=== PATIENT | male | born 1985 | race Hispanic/Latino ===

== ENCOUNTER 2022-12-28 19:41 | Emergency (ER) | payer SELFPAY ==
[~2022-12-28] VITALS: Ht 167.6 cm; Wt 68.0 kg
[2022-12-28] VITALS (8 sets, daily range): BP systolic 110–182; BP diastolic 77–114
[2022-12-28 20:26] LABS: BASO% 0.2 % (0-3); EOS% 0.5 % (0-8); HEMATOCRIT 36.7 % (39.0-50.0); IMMATURE GRANULOCYTES 0.2 % (0.0-5.0); MEAN CELL VOLUME 84.8 fL CALC (80.0-100.0); MEAN CORPUSCULAR HGB CONC 35.4 g/dL CAL (32.0-36.0); MONO% 7.5 % (2-13); NEUT# 11.97 thou/uL (1.82-7.42); NEUT% 68.6 % (42-76); RED BLOOD COUNT 4.33 mill/uL (4.70-6.10); RED CELL DISTRI WIDTH 11.7 % (11.5-15.5)
[2022-12-28 20:29] LABS: URINE BILIRUBIN - DIPSTICK NEGATIVE (NEGATIVE); URINE BLOOD DIPSTICK SMALL (NEGATIVE); URINE COLOR YELLOW; URINE GLUCOSE - DIPSTICK >=1000 mg/dL (NEGATIVE); URINE KETONE NEGATIVE (NEGATIVE); URINE LEUK ESTERASE NEGATIVE (NEGATIVE); URINE PH 6.5 (4.5-8.0); URINE PROTEIN - DIPSTICK NEGATIVE (NEG-TRACE); URINE UROBILINOGEN - DIPSTICK 0.2 E.U./dL (0.2)
[2022-12-28 20:32] LABS: URINE NITRITE - DIPSTICK NEGATIVE (Negative)
[2022-12-28 20:34] LABS: ALBUMIN 4.6 g/dL (3.2-5.0); ALKALINE PHOSPHATASE 170 u/l (38-126); ANION GAP 12 (6-22 (CALC)); BILIRUBIN, TOTAL 1.4 mg/dL (0.2-1.3); BUN 11 mg/dL (9-20); BUN/CREATININE RATIO 15 (12-20 (CALC)); CARBON DIOXIDE 29 mmol/l (22-30); CHLORIDE 94 mmol/l (95-108); CREATININE 0.7 mg/dL (0.7-1.3); ETHYL ALCOHOL 0 mg/dl (0-30); GFR FOR AFR.AMER. > 60 ML/MIN (>=60 (CALC)); GFR OTHER RACES > 60 ML/MIN (>=60 (CALC)); POTASSIUM 4.2 mmol/l (3.5-5.1); SGOT/AST 44 u/l (17-59); SODIUM 131 mmol/l (137-146)
[2022-12-28 20:37] LABS: URINE WBC 0-2 WBC/hpf (0-5)
== END 2022-12-28 22:30 | disposition designated cancer center or children's hospital (05) | DRG 897 ==
LOC: ED 19:41
PROVIDERS: Family Medicine
DX: F15.150 Other stimulant abuse with stimulant-induced psychotic disorder with delusions (principal); E11.9 Type 2 diabetes mellitus without complications; T38.3X6A Underdosing of insulin and oral hypoglycemic [antidiabetic] drugs, initial encounter; Z91.128 Patient's intentional underdosing of medication regimen for other reason; Z20.822 Contact with and (suspected) exposure to COVID-19
CPT/HCPCS: J2060

== ENCOUNTER → 2022-12-28 | Emergency (ER) | payer SELFPAY | END | disposition home or self-care (01) | DRG 951 | LOC: ED 11:37 → LWOBS 11:42 | DX: Z53.21 Procedure and treatment not carried out due to patient leaving prior to being seen by health care provider (principal) ==

== ENCOUNTER 2023-06-24 12:03 | Emergency (ER) | payer SELFPAY ==
[~2023-06-24] VITALS: Ht 167.6 cm; Wt 65.8 kg
[2023-06-24 12:14] VITALS: BP 139/89
[2023-06-24 12:41] LABS: BASO% 0.3 % (0-3); EOS% 0.6 % (0-8); HEMATOCRIT 36.7 % (39.0-50.0); HEMOGLOBIN 12.6 g/dl (14.0-18.0); IMMATURE GRANULOCYTES 0.5 % (0.0-5.0); LYMPH% 21.8 % (15-41); MEAN CELL VOLUME 85.2 fL CALC (80.0-100.0); MEAN CORPUSCULAR HGB 29.2 pG CALC (26.0-32.0); MEAN CORPUSCULAR HGB CONC 34.3 g/dL CAL (32.0-36.0); MONO% 10.7 % (2-13); NEUT# 5.87 thou/uL (1.82-7.42); NEUT% 66.1 % (42-76); RED BLOOD COUNT 4.31 mill/uL (4.70-6.10); RED CELL DISTRI WIDTH 11.3 % (11.5-15.5)
[2023-06-24 12:51] LABS: ALBUMIN 3.7 g/dL (3.2-5.0); ALKALINE PHOSPHATASE 138 u/l (38-126); ANION GAP 13 (6-22 (CALC)); BILIRUBIN, TOTAL 0.8 mg/dL (0.2-1.3); BUN 13 mg/dL (9-20); BUN/CREATININE RATIO 19 (12-20 (CALC)); CARBON DIOXIDE 28 mmol/l (22-30); CHLORIDE 96 mmol/l (95-108); CREATININE 0.7 mg/dL (0.7-1.3); GFR FOR AFR.AMER. > 60 ML/MIN (>=60 (CALC)); GFR OTHER RACES > 60 ML/MIN (>=60 (CALC)); POTASSIUM 4.5 mmol/l (3.5-5.1); SGOT/AST 26 u/l (17-59); SODIUM 132 mmol/l (137-146); TOTAL PROTEIN 6.9 g/dL (6.3-8.2)
[2023-06-24 13:18] LABS: URINE BILIRUBIN - DIPSTICK NEGATIVE (NEGATIVE); URINE COLOR YELLOW; URINE GLUCOSE - DIPSTICK 500 mg/dL (NEGATIVE); URINE KETONE Negative (NEGATIVE)
[2023-06-24 13:19] LABS: URINE BLOOD DIPSTICK TRACE (NEGATIVE); URINE LEUK ESTERASE NEGATIVE (NEGATIVE); URINE NITRITE - DIPSTICK NEGATIVE (Negative); URINE PH 6.5 (4.5-8.0); URINE PROTEIN - DIPSTICK NEGATIVE (NEG-TRACE)
[2023-06-24] MEDS ORDERED: METFORMIN HCL500 M1 PO ×2 (13:46→13:55)
[2023-06-24] MEDS ORDERED: AMOX/K CLAV875 M1 PO ×2 (13:49→13:55)
[2023-06-24 14:11] VITALS: BP 139/89
== END 2023-06-24 14:16 | disposition home or self-care (01) | DRG 639 ==
LOC: ED 12:03
PROVIDERS: Family Medicine
DX: E11.9 Type 2 diabetes mellitus without complications (principal); Z79.84 Long term (current) use of oral hypoglycemic drugs; Z20.822 Contact with and (suspected) exposure to COVID-19

== ENCOUNTER 2024-07-05 21:58 | Emergency (ER) | payer SELFPAY ==
[~2024-07-05] VITALS: Ht 165.1 cm; Wt 68.0 kg
[~2024-07-05 21:58] MED LIST: AMOX/K CLAV875 M1 PO; METFORMIN HCL500 M1 PO
[2024-07-05 23:17] VITALS: BP 147/92
[2024-07-05 23:30] VITALS: BP 141/82
[2024-07-05] MEDS ORDERED: LIDOcaine HCl 1% (Local Anesth.) 20 ML VIAL IM STA (23:38)
[2024-07-05] MEDS ORDERED: cefTRIAXone SODIUM 1 GM/VIAL SDV IM ONE (23:40)
[2024-07-05] MEDS ORDERED: ONDANSETRON 4 MG/TAB ODT PO ONE (23:40)
[2024-07-05] MEDS ORDERED: AZITHROMYCIN 250 MG/TAB PO ONE (23:40)
[2024-07-05] MEDS ORDERED: DOXYCYCLINE HYCLATE 100 MG/CAP PO ONE (23:40)
[2024-07-05] MEDS ORDERED: KETOROLAC TROMETHAMINE 30 MG/ML SDV IM ONE (23:40)
[2024-07-05] MEDS ORDERED: DOXY-CAPS100 MG PO (23:43)
[2024-07-05] MEDS ORDERED: OMNICEF300 M1 PO (23:43)
[2024-07-06] VITALS: BP 140/91
[2024-07-06 00:31] VITALS: BP 140/91
== END 2024-07-06 00:31 | disposition home or self-care (01) | DRG 728 ==
LOC: ED 21:58
DX: N48.21 Abscess of corpus cavernosum and penis (principal); N48.22 Cellulitis of corpus cavernosum and penis; I10 Essential (primary) hypertension; E11.9 Type 2 diabetes mellitus without complications